=== PATIENT | female | born 1985 | race African-American/Black ===

== ENCOUNTER 2020-06-10 21:06 | Emergency (ER) | payer OTHER ==
[2020-06-10 21:15] VITALS: BP 145/94; PULSE 94; TEMP 98.7; BMI 42.5
--- NOTE | 2020-06-10 21:26 | PDOC ---
History of Present Illness - General Chief Complaint: Vaginal Bleeding Stated Complaint: 11 WKS /VAGINAL BLEEDING Time Seen by Provider: 06/10/20 21:25 - History of Present Illness Initial Comments: 06/10/20 21:26 HPI: This is a 35 y/o female [id number] with a PMH of pre-eclampsia, CO, presenting to the ED because of vaginal bleeding. She is 11 weeks by ultrasound last week and sees Dr. Peter. Last week she started having brown discharge, and Dr. Peter told her to come to the ED if the blood changed or became bright red. Two days ago she had a small brown clot, and then again today. It concerned her and she wanted to have the baby checked. She denies any pain, cramping, bright red bleed ing, discharge, fever/chills, nausea, or vomiting. She admits to some suprapubic pressure, and occasional dysuria. ROS: GENERAL/CONSTITUTIONAL: No fever/chills. No weakness. HEAD, EYES, EARS, NOSE AND THROAT: No change in vision. NNo sore throat. CARDIOVASCULAR: No chest pain or shortness of breath. RESPIRATORY: No cough, wheezing, or hemoptysis. GASTROINTESTINAL: No nausea, vomiting, diarrhea or constipation. GENITOURINARY: Mild dysuria, no increased frequency. Dark red/brown spotting from vagina. MUSCULOSKELETAL: No joint or muscle swelling or pain. No neck or back pain. NEUROLOGIC: No headache, loss of consciousness, or change in strength/sensation. ALLERGIC/IMMUNOLOGIC: No hives or skin allergy. PMH: Pre-eclampsia, CO, HTN PSx: Gastric bypass, Social Hx: Denied Meds: See nurse note Allergies: Denied PE: GENERAL: Awake, alert, and fully oriented, in no acute distress. Patient is laying in bed conversing normally with her boyfriend in the room. HEAD: No signs of trauma EYES: PERRL, EOMI NECK: Normal ROM, supple LUNGS: Breath sounds equal, clear to auscultation bilaterally. No wheezes, and no crackles HEART: Regular rate and rhythm, normal S1 and S2, no murmurs, rubs or gallops ABDOMEN: Soft, nontender, normoactive bowel sounds. No guarding, no rebound. No masses EXTREMITIES: Normal range of motion, no edema NEUROLOGICAL: Cranial nerves II through XII grossly intact. Normal speech, normal gait SKIN: Warm, Dry, normal turgor, no rashes or lesions noted. PELVIC EXAM: Vaginal vault with small amount of dark red blood. Cervical os closed MDM: This is a 35 y/o female [id number] with a PMH of pre-eclampsia, CO, presenting to the ED because of vaginal bleeding. She is 11 weeks by ultrasound last week and sees Dr. Peter. - POCUS showed FHR of 168. - CBC - CMP - UA - Pelvic exam 06/10/20 23:27 CBC WBC 6.7 K/mm3 (4.0-10.0) 06/10/20 22:00 RBC 3.83 M/mm3 (3.60-5.2) 06/10/20 22:00 Hgb 9.8 GM/dL (10.7-15.3) L 06/10/20 22:00 Hct 30.6 % (32.4-45.2) L 06/10/20 22:00 MCV 80.1 fl (80-96) 06/10/20 22:00 MCH 25.6 pg (25.7-33.7) L 06/10/20 22:00 MCHC 31.9 g/dl (32.0-36.0) L 06/10/20 22:00 RDW 27.4 % (11.6-15.6) H 06/10/20 22:00 Plt Count 212 K/MM3 (134-434) 06/10/20 22:00 MPV 9.8 fl (7.5-11.1) 06/10/20 22:00 CMP Sodium 138 mmol/L (136-145) 06/10/20 22:00 Potassium 3.9 mmol/L (3.5-5.1) 06/10/20 22:00 Chloride 110 mmol/L (98-107) H 06/10/20 22:00 Carbon Dioxide 21 mmol/L (21-32) 06/10/20 22:00 Anion Gap 8 MMOL/L (8-16) 06/10/20 22:00 BUN 10.1 mg/dL (7-18) 06/10/20 22:00 Creatinine 0.6 mg/dL (0.55-1.3) 06/10/20 22:00 Est GFR (CKD-EPI)AfAm 135.91 06/10/20 22:00 Est GFR (CKD-EPI)NonAf 117.26 06/10/20 22:00 Random Glucose 79 mg/dL (74-106) 06/10/20 22:00 Calcium 8.8 mg/dL (8.5-10.1) 06/10/20 22:00 Total Bilirubin 0.2 mg/dL (0.2-1) 06/10/20 22:00 AST 15 U/L (15-37) 06/10/20 22:00 ALT 16 U/L (13-61) 06/10/20 22:00 Alkaline Phosphatase 58 U/L (45-117) 06/10/20 22:00 Total Protein 6.5 g/dl (6.4-8.2) 06/10/20 22:00 Albumin 3.2 g/dl (3.4-5.0) L 06/10/20 22:00 Beta HCG, Quant 08106.4 mIU/ml 06/10/20 22:00 Patient with mild anemia - She is aware, going for iron transfusion tomorrow - Electrolytes WNL 06/11/20 00:21 Pelvic exam showed small amount of dark red blood in the vaginal vault and also coming from the cervical os which was closed. - Patient unable to urinate, will follow-up on UA and culture results with ObGyn in the next day or two Patient stable, will be d/c with specific follow-up instructions. Past History - Medical History Allergies/Adverse Reactions: Allergies Allergy/AdvReac Type Severity Reaction Status Date / Time No Known Allergies Allergy Verified 06/10/20 22:32 COPD: No HTN: Yes - Surgical History Cardiac Surgery: Yes - Psycho-Social/Smoking History Smoking History: Never smoked - Substance Abuse Hx (Audit-C & DAST Scrn) How often the patient has a drink containing alcohol: Never Score: In Men: 4 or > Positive; In Women: 3 or > Positive: 0 Screen Result (Pos requires Nsg. Audit-10AR): Negative *Physical Exam - Vital Signs Last Vital Signs Temp Pulse Resp BP Pulse Ox 98.7 F 94 H 20 145/94 100 06/10/20 21:10 06/10/20 21:10 06/10/20 21:10 06/10/20 21:10 06/10/20 21:10 ED Treatment Course - LABORATORY CBC & Chemistry Diagram: 06/10/20 22:00 06/10/20 22:00 Discharge - Discharge Information Problems reviewed: Yes Clinical Impression/Diagnosis: Vaginal bleeding in , Threatened miscarriage Condition: Stable Disposition: HOME - Admission No - Follow up/Referral Referrals: Jeffry Eason MD [Primary Care Provider] - - Patient Discharge Instructions Patient Printed Discharge Instructions: Common Discomforts and Bodily Changes During , DI for Threatened Additional Instructions: You were seen in the emergency department today for vaginal bleeding. You were given a physical exam, an ultrasound, and labwork. Your labwork showed that you have mild anemia with a hemoglobin of 9.8. The ultrasound showed a heart rate of 168. Follow-up with your ObGyn in the next 1-2 days. Follow-up on the results of your test for a urinary tract infection with Dr. Eason. Return to the ED with any new or worsening concerns. Return if you have severe pain, heavy bleeding, lightheadedness, shortness of breath, high fever, or any other concerning symptoms. - Post Discharge Activity
--- NOTE | 2020-06-10 21:31 | PDOC ---
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 Last week she started having brown discharge, and Dr. Peter told her to come to the ED if the blood changed or became bright red. Two days ago she had a small brown clot, and then again today. It concerned her and she wanted to have the baby checked. She denies any pain, cramping, bright red bleeding, discharge, fever/chills, nausea, or vomiting. She admits to some suprapubic pressure, and occasional dysuria. information analyst is Dr Salazar - she had ultrasound 1 week ago for similar symptoms. similar complaint last week for vaginal spotting at that time. she is currently pending urine culture from 2 days ago. 06/10/20 21:43 06/10/20 22:27 06/11/20 00:37 - Physicial Exam PE: 06/10/20 21:44 Agree with the resident's HPI and PE as documented in the electronic medical record. NAD, well appearing, EOMI, PERRL, nl conjunctiva, anicteric; neck supple. lungs clear, RRR, abdomen soft nontender. obese abdomen. no rebound, guarding. Back nontender. CORLEY x4, no focal neuro deficits. No peripheral edema. normal color for ethnicity, WWP. /pelvic exam done by resident, see documentation, no acute bleeding here, os is closed, firm and pink 06/10/20 22:27 06/11/20 00:38 - Medical Decision Making 06/10/20 21:31 Vital Signs Temp Pulse Resp BP Pulse Ox 98.7 F 94 H 20 145/94 100 06/10/20 21:10 06/10/20 21:10 06/10/20 21:10 06/10/20 21:10 06/10/20 21:10 DDx: , miscarriage, demise, subchorionic hematoma, retained POC, normal first trimester bleeding, UTI in in . Fibroid uterus, vaginitis, infection, electrolyte/metabolic derangements, anemia. Considered but clinically doubt based on HPI and PE: Rh positive, no rhogam indicated VS wnl, normotensive, no tachy or hypoxia/respiratory distress. abdomen benign on reeval and no peritoneal findings, no VB here, controlled Beta hcg [id number] bedside pocus TAB pelvic sono_ shows live IUP at 11 weeks, heart rate is 160 bpm which is reassuring Pelvic exam as documented, no active bleeding here, os is closed urinalysis labels got mislabeled, and pt is unable to urinate again despite encouraging, and she wants to be discharged. 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 Dispo: OB followup with Dr Salazar, bleeding precautions; return to ED if persistent and heavy vaginal bleeding, persistent pelvic pain not relieved by your prescribed medications, dizziness, shortness of breath, new and persistent fevers, other foul smelling discolored vaginal discharge, or for any other concerns. 06/10/20 21:44 06/10/20 22:26 06/11/20 00:39 06/11/20 00:40 06/11/20 00:41 Discharge - Discharge Information Problems reviewed: Yes Clinical Impression/Diagnosis: Vaginal bleeding in , Threatened miscarriage Disposition: HOME - Admission No - Follow up/Referral Referrals: Jeffry Eason MD [Primary Care Provider] - - Patient Discharge Instructions Patient Printed Discharge Instructions: DI for Threatened Additional Instructions: You were seen in the emergency department today for vaginal bleeding. You were given a physical exam, an ultrasound, and labwork. The ultrasound showed a heart rate of 168. Your pelvic exam showed a closed cervical os with small amounts of dark red blood. Follow-up with your ObGyn in the next few days. Follow-up on the results of the test for the urinary tract infection. Return to the ED with any new or worsening concerns. Return if you have severe pain, heavy bleeding, lightheadedness, shortness of breath, high fever, or any other concerning symptoms. - Post Discharge Activity
[2020-06-10] MEDS ORDERED: ACETAMINOPHEN 325 MG TABLET (FP) PO ONE (22:26)
[2020-06-10] MEDS ORDERED: ACETAMINOPHEN 325 MG TABLET (FP) ONE (22:34)
[2020-06-10 22:43] LABS: HEMATOCRIT 30.6 % (32.4-45.2); HEMOGLOBIN 9.8 GM/dL (10.7-15.3); MCH 25.6 pg (25.7-33.7); MCHC 31.9 g/dl (32.0-36.0); MEAN CELL VOLUME 80.1 fl (80-96); MEAN PLT VOLUME 9.8 fl (7.5-11.1); PLATELET COUNT 212 K/MM3 (134-434); RBC 3.83 M/mm3 (3.60-5.2); RDW 27.4 % (11.6-15.6); WHITE BLOOD COUNT 6.7 K/mm3 (4.0-10.0)
[2020-06-10 23:24] LABS: ALBUMIN 3.2 g/dl (3.4-5.0); BILIRUBIN,TOTAL 0.2 mg/dL (0.2-1); BLOOD UREA NITROGEN 10.1 mg/dL (7-18); CALCIUM 8.8 mg/dL (8.5-10.1); CREATININE 0.6 mg/dL (0.55-1.3); POTASSIUM 3.9 mmol/L (3.5-5.1); TOT PROT 6.5 g/dl (6.4-8.2)
== END 2020-06-11 00:46 | disposition home or self-care (01) ==
LOC: JER 21:06
DX: O20.0 Threatened abortion (principal); Z3A.11 11 weeks gestation of pregnancy
CPT/HCPCS: 36415; 76815; 80053; 84702; 85027; 86850; 86900; 86901; 99284-25